=== PATIENT | female | born 1955 | race Two or more races ===

== ENCOUNTER 2019-12-15 09:45 | Outpatient (CLI) | payer MEDICARE, MEDICAID | END 2019-12-15 23:59 | disposition home health service (06) | LOC: WOU 09:45 | PROVIDERS: ATTEND Specialist | DX: T81.32XA Disruption of internal operation (surgical) wound, not elsewhere classified, initial encounter (principal); L89.153 Pressure ulcer of sacral region, stage 3; M06.9 Rheumatoid arthritis, unspecified | CPT/HCPCS: 11042; 87070-TC; 87075-TC; A6210 ==